=== PATIENT | male | born 1940 | race Caucasian/White ===

== ENCOUNTER 2023-08-20 14:15 | Inpatient (IN) | payer OTHER ==
[~2023-08-20] VITALS: Ht 175.3 cm; Wt 76.4 kg
[2023-08-20 15:17] LABS: Basophils # (auto) 0 10 ^3/uL (0-0.2); Basophils % (auto) 0.1 % (0.0-2.0); Eosinophils # (auto) 0 10 ^3/uL (0-0.8); Hematocrit 38.7 % (41.0-53.0); Hemoglobin 13.6 g/dL (13.5-17.5); Lymphocytes # (auto) 0.8 10 ^3/uL (0.4-5.4); Lymphocytes % (auto) 7.6 % (10.0-50.0); Mean Corpuscular Hemoglobin 32.7 pg (28.0-32.0); Mean Corpuscular Volume 93.2 fL (80.0-100.0); Monocytes # (auto) 1.5 10 ^3/uL (0-1.3); Monocytes % (auto) 14.3 % (0.0-12.0); Neutrophils # (auto) 8.1 10 ^3/uL (1.6-8.6); Nucleated Red Blood Cells % 0.2 %; Red Blood Cells 4.15 10^6/uL (4.5-5.90); Red Cell Distribution Width 13.1 % (11.8-14.3); White Blood Cell 10.4 10^3/uL (4.4-10.8)
[2023-08-20 15:34] LABS: Alanine Aminotransferase 14 U/L (7-40); Alkaline Phosphatase 89 U/L (46-116); Anion Gap 5 (5-15); Aspartate Aminotransferase 19 U/L (13-40); BUN/Creatinine Ratio 13.3 (10.0-20.0); Blood Urea Nitrogen 20 mg/dL (9-23); Calcium 9.3 mg/dL (8.7-10.4); Carbon Dioxide 26 mmol/L (20-30); Chloride 100 mmol/L (98-107); Glucose 118 mg/dL (74-106); Lipase 33 U/L (12-53); Potassium 3.9 mmol/L (3.5-5.1); Sodium 131 mmol/L (136-145)
[2023-08-20 15:35] LABS: Bilirubin, Total 1.2 mg/dL (0.2-1.0); Total Protein 6.8 g/dL (5.7-8.2)
[2023-08-20] MEDS ORDERED: ONDANSETRON HCL 4 MG/2 ML VIAL IV PRN (21:45)
[2023-08-20] MEDS: SODIUM CHLORIDE 0.9% 1,000 ML IV ONE (22:34)
[2023-08-20] MEDS: HEPARIN SODIUM (PORCINE) 5000 UNITS/ML 1ML VIAL IV SCH (22:34)
[2023-08-20 23:59] VITALS: RESP 19; O2SAT 96
[2023-08-21] VITALS (7 sets, daily range): BP systolic 117–144; BP diastolic 54–66; PULSE 54–86; RESP 18–20; TEMP 97.6–102; O2SAT 95–98
[2023-08-21 07:37] LABS: Chloride 101 mmol/L (98-107); Potassium 3.9 mmol/L (3.5-5.1); Sodium 133 mmol/L (136-145)
[2023-08-21 07:38] LABS: Anion Gap 7 (5-15); Carbon Dioxide 25 mmol/L (20-30)
[2023-08-21 07:39] LABS: Calcium 9.2 mg/dL (8.5-10.1)
[2023-08-21 07:43] LABS: Glucose 89 mg/dL (74-106)
[2023-08-21 07:44] LABS: BUN/Creatinine Ratio 16.5 (10.0-20.0); Blood Urea Nitrogen 22 mg/dL (9-23)
[2023-08-21] MEDS: ACETAMINOPHEN 325 MG TAB PO PRN (09:06)
[2023-08-21] MEDS: FAMOTIDINE 20 MG TAB PO SCH (09:07)
[2023-08-21] MEDS: SOD CHL 0.45% 1,000 ML IV SCH (12:28)
[2023-08-21 12:42] LABS: Urine Bacteria None Seen /hpf (None Seen)
[2023-08-21 12:58] LABS: Urine Blood 1+ /uL (Negative); Urine Clarity Clear (Clear); Urine Color Yellow (Yellow); Urine Protein, UAD TRACE (Negative); Urine Specific Gravity 1.013 (1.001-1.035); Urine Urobilinogen 2 mg/dL (Negative); Urine WBC 1 /hpf (0 - 3); Urine pH 5.5 (5.0-9.0)
[2023-08-22] VITALS (7 sets, daily range): BP systolic 124–137; BP diastolic 53–66; PULSE 60–82; RESP 16–19; TEMP 37.2; O2SAT 94–97
[2023-08-22 07:34] LABS: Alanine Aminotransferase 15 U/L (7-40); Albumin 3.4 g/dL (3.2-4.8); Alkaline Phosphatase 78 U/L (46-116); Anion Gap 6 (5-15); Aspartate Aminotransferase 33 U/L (13-40); BUN/Creatinine Ratio 18.9 (10.0-20.0); Bilirubin, Total 0.9 mg/dL (0.2-1.0); Blood Urea Nitrogen 21 mg/dL (9-23); Calcium 8.4 mg/dL (8.5-10.1); Carbon Dioxide 23 mmol/L (20-30); Chloride 102 mmol/L (98-107); Glucose 92 mg/dL (74-106); Potassium 3.6 mmol/L (3.5-5.1); Sodium 131 mmol/L (136-145); Total Protein 5.7 g/dL (5.7-8.2)
[2023-08-22] MEDS ORDERED: AMOX500T86 PO (14:32)
== END 2023-08-22 17:50 | disposition home health service (06) | DRG 202 ==
LOC: ER 14:15 → TELE 21:56 → TELE-WESTW 23:45 → OBSVTOIN 08-22 09:31
PROVIDERS: ADMIT Nurse Practitioner Family; ATTEND Hospitalist
DX: J20.9 Acute bronchitis, unspecified (principal); N17.0 Acute kidney failure with tubular necrosis; E87.1 Hypo-osmolality and hyponatremia; E86.0 Dehydration; I10 Essential (primary) hypertension; Z87.891 Personal history of nicotine dependence
CPT/HCPCS: 36415; 71250; 80048; 80053; 81001; 82607; 83605; 83690; 83735; 83880; 84443; 84484; 85025; 85379; 87040; 87086; 93005; 93970; 97110; 97116; 97163; 97530; G0378